=== PATIENT | female | born 1995 | race Caucasian/White ===

== ENCOUNTER 2019-08-09 16:47 | Emergency (ER) | payer MEDICAID ==
[~2019-08-09] VITALS: Ht 170.2 cm; Wt 68.0 kg
[2019-08-09 17:10] VITALS: BP 128/83
[2019-08-09 17:46] LABS: CLARITY,URINE SLIGHTLY CLOUDY (Clear); COLOR,URINE YELLOW (Yellow); GLUCOSE, URINE NEGATIVE (Neg); KETONES,URINE NEGATIVE (Neg); LEUKOCYTE ESTERASE ,URINE NEGATIVE (Neg); NITRITES, URINE NEGATIVE (Neg); OCCULT BLOOD,URINE NEGATIVE (Neg); PROTEIN,URINE NEGATIVE (Neg); UROBILINOGEN,URINE 0.2 E.U/dL (0.2-1.0)
[2019-08-09 17:47] LABS: URINE HCG NEGATIVE (NEG)
[2019-08-09 17:48] LABS: UA COLLECTION TYPE CLN CATCH MIDSTREAM
[2019-08-09 17:54] LABS: BACTERIA,URINE FEW /HPF (Neg); MUCUS STRANDS FEW /LPF (Neg); RBC,URINE 0-2 /HPF (0-2); SQUAMOUS EPITHELIAL CELL,UR MANY /LPF (FEW); WBC,URINE 0-4 /HPF (0-4)
== END 2019-08-09 18:35 | disposition home or self-care (01) ==
LOC: ER 16:48
DX: M54.5 Low back pain (principal)
CPT/HCPCS: 81001; 81025; 99283